=== PATIENT | female | born 1995 | race African-American/Black ===

== ENCOUNTER 2018-05-22 08:49 | Emergency (ER) | payer SELFPAY ==
[2018-05-22 09:00] VITALS: BP 121/86; PULSE 68; TEMP 97.6; BMI 26.6
[2018-05-22] MEDS ORDERED: ACETAMINOPHEN 325 MG TABLET (FP) PO ONE (09:35)
[2018-05-22] MEDS ORDERED: ACETAMINOPHEN 325 MG TABLET (FP) ONE (09:37)
--- NOTE | 2018-05-22 09:49 | PDOC ---
History of Present Illness - General Chief Complaint: Ear Problem Stated Complaint: LEFT EAR PAIN Time Seen by Provider: 05/22/18 09:02 History Source: Patient - History of Present Illness Severity: moderate Past History - Past Medical History Allergies/Adverse Reactions: Allergies Allergy/AdvReac Type Severity Reaction Status Date / Time No Known Allergies Allergy Verified 05/22/18 08:54 Home Medications: Ambulatory Orders NK [No Known Home Medication] 05/22/18 COPD: No - Suicide/Smoking/Psychosocial Hx Smoking History: Never smoked Have you smoked in the past 12 months: No Information on smoking cessation initiated: No Hx Alcohol Use: No Drug/Substance Use Hx: No Review of Systems - Review of Systems Constitutional: No: Fever HEENTM: Yes: Ear Pain. No: Tinnitus, Throat Pain Neurological: No: Numbness, Tingling *Physical Exam - Vital Signs Last Vital Signs Temp Pulse Resp BP Pulse Ox 97.6 F 68 16 121/86 100 05/22/18 08:54 05/22/18 08:54 05/22/18 08:54 05/22/18 08:54 05/22/18 08:54 - Physical Exam General Appearance: Yes: Appropriately Dressed. No: Apparent Distress HEENT: positive: Normal ENT Inspection, Normal Voice, TMs Normal, Pharynx Normal , Other (no facial swelling, erythema or ttp, NT over TMJ, no dental ttp). negative: Scleral Icterus (R), Scleral Icterus (L) Neck: positive: Supple. negative: Tender, Decreased range of motion, Lymphadenopathy (R), Lymphadenopathy (L) Respiratory/Chest: negative: Respiratory Distress Integumentary: positive: Dry, Warm Neurologic: positive: Fully Oriented, Alert, Normal Mood/Affect Moderate Sedation - Procedure Monitoring Vital Signs: Procedure Monitoring Vital Signs Temperature 97.6 F 05/22/18 08:54 Pulse Rate 68 05/22/18 08:54 Respiratory Rate 16 05/22/18 08:54 Blood Pressure 121/86 05/22/18 08:54 O2 Sat by Pulse Oximetry (%) 100 05/22/18 08:54 Medical Decision Making - Medical Decision Making 05/22/18 09:49 23-year-old female, no significant history, here with R facial pain x several days, radiating to ear, and occurs in paroxyms. Also reports sensitivity to site. No numbness, tingling, otorrhea, sore throat, dental pain, pain with chewing or eating, fever or chills. No trauma or other obvious inciting factors. No history of same. See exam Atraumatic L facial pain No findings on exam to explain etiology Possible MSK, trigeminal neuralgia considered as pain mostly in areas innervated by facial nerve -dc w/ OTC pain meds as needed -to f/u with PMD of pain persists *DC/Admit/Observation/Transfer Diagnosis at time of Disposition: Facial pain - Discharge Dispostion Disposition: HOME Condition at time of disposition: Good - Referrals - Patient Instructions Additional Instructions: The cause of your symptoms are unclear at this time as your exam was normal. Pain could be muscular in nature or neurological. Take Motrin or Tylenol as needed. If pain persists, please follow-up with your PMD for evaluation - Post Discharge Activity
== END 2018-05-22 09:44 | disposition home or self-care (01) ==
LOC: JERFT 08:49
DX: R51 Headache (principal)
CPT/HCPCS: 99281-25